=== PATIENT | female | born 1990 | race Hispanic/Latino ===

== ENCOUNTER 2016-11-26 21:51 | Emergency (ER) | payer BC, MEDICAID ==
[2016-11-26 21:57] VITALS: BP 123/73; PULSE 84; RESP 18; TEMP 99.2; O2SAT 99
--- NOTE | 2016-11-26 22:15 | ED PDOC ---
HPI: Back Time Seen by Provider: 11/26/16 21:56 Chief Complaint (Nursing): Back Pain Chief Complaint (Provider): Bilateral low back pain for 2 weeks, no trauma History Per: Patient History/Exam Limitations: no limitations Onset/Duration Of Symptoms: Days Current Symptoms Are (Timing): Still Present Full Body Front + Back: 1 - Pain Quality Of Discomfort: Dull Description Of Injury (Context): None Severity: Moderate Pain Scale Rating Of: 6 Previous Symptoms: None Associated Symptoms: None Exacerbating Factor(s): Movement, Sitting (For long periods ) Additional Complaint(s): No N/V/D. No bladder or bowel incontinence. No fever/chills. No numbness/ tingling. Pt states she has been taking motrin 600mg but it hs not been helping. No new activities. Past Medical History Reviewed: Historical Data, Nursing Documentation, Vital Signs Vital Signs: Last Vital Signs Temp 99.2 F 11/26/16 21:55 Pulse 84 11/26/16 21:55 Resp 18 11/26/16 21:55 BP 123/73 11/26/16 21:55 Pulse Ox 99 11/26/16 21:55 - Medical History PMH: No Chronic Diseases - Surgical History Surgical History: Cholecystectomy - Family History Family History: States: Unknown Family Hx - Living Arrangements Living Arrangements: With Family - Social History Current smoker - smoking cessation education provided: No Alcohol: None Drugs: Denies - Immunization History Hx Tetanus Toxoid Vaccination: No Hx Influenza Vaccination: No Hx Pneumococcal Vaccination: No - Home Medications Home Medications: Ambulatory Orders Medication Instructions Recorded Chlorzoxazone [Lorzone] 750 mg PO BID #14 tablet 11/26/16 Ciprofloxacin [Cipro] 500 mg PO BID #10 tab 11/26/16 Ibuprofen [Motrin Tab] 800 mg PO Q6H PRN #20 tab 11/26/16 - Allergies Allergies/Adverse Reactions: Allergies Allergy/AdvReac Type Severity Reaction Status Date / Time No Known Allergies Allergy Verified 03/05/16 23:37 Review of Systems ROS Statement: Except As Marked, All Systems Reviewed And Found Negative Respiratory: Negative for: Cough Gastrointestinal: Negative for: Nausea, Vomiting, Abdominal Pain Genitourinary Female: Negative for: Dysuria Musculoskeletal: Positive for: Back Pain Physical Exam - Reviewed Nursing Documentation Reviewed: Yes Vital Signs Reviewed: Yes - Physical Exam Appears: Positive for: Well, Non-toxic, No Acute Distress Head Exam: Positive for: ATRAUMATIC, NORMAL INSPECTION, NORMOCEPHALIC Skin: Positive for: Normal Color, Warm, DRY Eye Exam: Positive for: Normal appearance ENT: Positive for: Normal ENT Inspection Neck: Positive for: Normal, Painless ROM Cardiovascular/Chest: Positive for: Regular Rate, Rhythm Respiratory: Positive for: Normal Breath Sounds. Negative for: Accessory Muscle Use, Respiratory Distress Back: Positive for: Normal Inspection. Negative for: L CVA Tenderness, R CVA Tenderness, Vertebral Tenderness, Decreased ROM Extremity: Positive for: Normal ROM Neurologic/Psych: Positive for: Alert, Oriented - ECG O2 Sat by Pulse Oximetry: 99 Pulse Ox Interpretation: Normal Disposition - Clinical Impression Clinical Impression: Back pain, UTI (urinary tract infection) - Patient ED Disposition Is Patient to be Admitted: No Counseled Patient/Family Regarding: Diagnosis, Need For Followup, Rx Given - Disposition Referrals: [facility] [Outside] Disposition: Routine/Home Disposition Time: 23:07 Condition: GOOD Prescriptions: Ciprofloxacin [Cipro] 500 mg PO BID #10 tab Chlorzoxazone [Lorzone] 750 mg PO BID #14 tablet Ibuprofen [Motrin Tab] 800 mg PO Q6H PRN #20 tab PRN Reason: Pain Instructions: Urinary Tract Infection in Women (ED)
== END 2016-11-26 23:15 | disposition home or self-care (01) ==
LOC: H.ER 21:51
DX: N39.0 Urinary tract infection, site not specified (principal); M54.5 Low back pain
CPT/HCPCS: 87086; 96372; 99282; J1885

== ENCOUNTER 2017-07-29 03:01 | Emergency (ER) | payer BC, MEDICAID ==
--- NOTE | 2017-07-29 04:02 | ED PDOC ---
HPI:Nausea, Vomiting, Diarrhea Time Seen by Provider: 07/29/17 03:24 Chief Complaint (Nursing): Abdominal Pain Chief Complaint (Provider): Abdominal Pain History Per: Patient History/Exam Limitations: no limitations Onset/Duration Of Symptoms: Hrs (x3) Current Symptoms Are (Timing): Still Present Additional Complaint(s): 26 year old female who presents to the emergency department for epigastric pain associated with nausea, watery diarrhea, chills and 3 episodes of non-bloody vomiting ongoing since 12am today. Denied any fever. Patient stated her children had similar symptoms and requesting a work note for today. PMD: none provided Past Medical History Reviewed: Historical Data, Nursing Documentation, Vital Signs Vital Signs: Last Vital Signs Temp 98.7 F 07/29/17 03:19 Pulse 111 H 07/29/17 03:19 Resp 20 07/29/17 03:19 BP 123/79 07/29/17 03:19 Pulse Ox 99 07/29/17 03:19 - Surgical History Surgical History: Cholecystectomy - Family History Family History: States: Unknown Family Hx - Immunization History Hx Tetanus Toxoid Vaccination: No Hx Influenza Vaccination: No Hx Pneumococcal Vaccination: No - Home Medications Home Medications: Ambulatory Orders Medication Instructions Recorded Chlorzoxazone [Lorzone] 750 mg PO BID #14 tablet 11/26/16 Ciprofloxacin [Cipro] 500 mg PO BID #10 tab 11/26/16 Ibuprofen [Motrin Tab] 800 mg PO Q6H PRN #20 tab 11/26/16 - Allergies Allergies/Adverse Reactions: Allergies Allergy/AdvReac Type Severity Reaction Status Date / Time No Known Allergies Allergy Verified 07/29/17 03:28 Review of Systems ROS Statement: Except As Marked, All Systems Reviewed And Found Negative Constitutional: Positive for: Chills. Negative for: Fever Gastrointestinal: Positive for: Nausea, Vomiting (x3 nonbloody), Abdominal Pain (epigastric), Diarrhea (watery) Physical Exam - Reviewed Nursing Documentation Reviewed: Yes Vital Signs Reviewed: Yes - Physical Exam Appears: Positive for: Well, Non-toxic, No Acute Distress Head Exam: Positive for: ATRAUMATIC, NORMAL INSPECTION, NORMOCEPHALIC Skin: Positive for: Normal Color Eye Exam: Positive for: Normal appearance ENT: Positive for: Normal ENT Inspection Neck: Positive for: Normal, Painless ROM Cardiovascular/Chest: Positive for: Chest Non Tender, Tachycardia. Negative for : Regular Rate, Rhythm Respiratory: Positive for: Normal Breath Sounds. Negative for: Decreased Breath Sounds, Respiratory Distress Gastrointestinal/Abdominal: Positive for: Normal Exam, Soft, Tenderness ( epigastric, mild) Back: Positive for: Normal Inspection. Negative for: L CVA Tenderness, R CVA Tenderness Extremity: Positive for: Normal ROM Neurologic/Psych: Positive for: Alert, Oriented - Laboratory Results Result Diagrams: 07/29/17 06:16 07/29/17 06:16 - ECG O2 Sat by Pulse Oximetry: 99 (RA) Pulse Ox Interpretation: Normal Medical Decision Making Medical Decision Making: Initial Impression: Gastroenteritis Initial Plan: * Urine * Urine dipstick * NS 1,000ml IV per 1,000mls/hr * Pepcid 20mg IVP * Zofran inj 4mg IVP 0700 Pt continued having nausea and abd pain despite medications. CT ordered as well as phenergan and benadryl. will endorse to dr. mckeon pending ct and reassessment. Scribe Attestation: Documented by Tia Greene, acting as a scribe for Darien Herr MD. Provider Scribe Attestation: All medical record entries made by the Scribe were at my direction and personally dictated by me. I have reviewed the chart and agree that the record accurately reflects my personal performance of the history, physical exam, medical decision making, and the department course for this patient. I have also personally directed, reviewed, and agree with the discharge instructions and disposition. Disposition - Clinical Impression Clinical Impression: Abdominal pain - Disposition Referrals: Victorino Wray MD [Primary Care Provider] - Disposition Time: 07:00 Condition: STABLE Forms: [employer] (German) Patient Signed Over To: Jose Daniel Mckeon Handoff Comments: pending CT and reassessment
[2017-07-29] MEDS: Sodium Chloride 0.9% 1,000 ML IV STA ×2 (04:37→06:13)
[2017-07-29 06:17] VITALS: RESP 16
[2017-07-29 06:35] LABS: BASO % 0.2 % (0.0-2.0); EOS # 0.1 K/uL (0.0-0.7); EOS % 0.4 % (0.0-4.0); HEMATOCRIT 44.1 % (34.0-47.0); LYMPH # 1.2 K/uL (1.0-4.3); MEAN CORPUSCULAR HEMOGLOBIN 27.5 pg (27.0-31.0); MEAN CORPUSCULAR HGB CONC 32.4 g/dL (33.0-37.0); MEAN PLATELET VOLUME 9.3 fl (7.2-11.7); MONO # 0.6 K/uL (0.0-0.8); MONO % 4.2 % (0.0-10.0); NEUT % 87.2 % (50.0-75.0); PLATELET COUNT 251 K/uL (130-400); RED CELL DISTRIBUTION WIDTH 13.2 % (11.5-14.5); WHITE BLOOD COUNT 14.9 K/uL (4.8-10.8)
[2017-07-29 07:03] LABS: URINE COLOR YELLOW (YELLOW)
[2017-07-29 07:04] LABS: URINE BILIRUBIN NEGATIVE (NEGATIVE); URINE BLOOD TRACE (NEGATIVE); URINE GLUCOSE (UA) NEGATIVE (Normal); URINE KETONE NEGATIVE (NEGATIVE); URINE PROTEIN 30 mg/dL (NEGATIVE); URINE UROBILINOGEN 0.2 mg/dL (0.2-1.0)
[2017-07-29 07:05] LABS: RBC URINE 3 /hpf (0-3); URINE BACTERIA MOD (<OCC); URINE LEUKOCYTE ESTERASE LARGE Leu/uL (Negative); WBC URINE 80 /hpf (0-5)
[2017-07-29 07:07] LABS: BLOOD UREA NITROGEN 17 mg/dl (7-17); CALCIUM 9.6 mg/dL (8.4-10.2); CARBON DIOXIDE 22 mmol/L (22-30); CHLORIDE 102 mmol/L (98-107); GFR AFRICAN-AMERICAN > 60; GLUCOSE,RANDOM 99 mg/dL (65-105); SODIUM 144 mmol/l (132-148)
--- NOTE | 2017-07-29 07:07 | ED PDOC ---
- Laboratory Results Result Diagrams: 07/29/17 06:16 07/29/17 06:16 - ECG O2 Sat by Pulse Oximetry: 99 (RA) Pulse Ox Interpretation: Normal Medical Decision Making Medical Decision Makin:00 Patient signed over from Darien Herr MD to me pending CT scan results. 08:20 Patient reports feeling much better, she does not wish to have the CT scan at this time. Says her pain is gone. On re-exam her abd is soft and nontendor. Scribe Attestation: Documented by Sol Caputo, acting as a scribe for Jose Daniel Mckeon MD. Provider Scribe Attestation: All medical record entries made by the Scribe were at my direction and personally dictated by me. I have reviewed the chart and agree that the record accurately reflects my personal performance of the history, physical exam, medical decision making, and the department course for this patient. I have also personally directed, reviewed, and agree with the discharge instructions and disposition. Disposition - Clinical Impression Clinical Impression: Abdominal pain, Vomiting, Diarrhea - POA Present On Arrival: None - Disposition Referrals: Victorino Wray MD [Primary Care Provider] - Disposition: Routine/Home Disposition Time: 08:36 Condition: STABLE Additional Instructions: Please follow up with your doctor. Return to the ER for any worsening symptoms, fever, worsening pain, or for any other concerns. Prescriptions: Ondansetron ODT [Zofran ODT] 4 mg PO Q4H PRN #10 odt PRN Reason: Nausea/Vomiting Instructions: Gastroenteritis (ED) Forms: [employer] (Chilean), [facility] ED School/Work Excuse
[2017-07-29] MEDS ORDERED: Iohexol 240 (50 ml) ONE (07:31)
[2017-07-29] MEDS ORDERED: DiphenhydrAMINE 50 mg/ml Inj ONE (07:31)
[2017-07-29] MEDS: DiphenhydrAMINE 50 mg/ml Inj IVP STA (07:36)
[2017-07-29] MEDS: Iohexol 240 (50 ml) PO ONE (07:36)
[2017-07-29] MEDS: Promethazine 25 MG in Sodium Chloride 0.9% 50 ML IVPB ONE (07:39)
[2017-07-29 08:36] LABS: EOSINOPHIL 2 % (0-7); LARGE PLATELETS PRESENT; NEUTROPHIL 84 % (42-75); TOTAL CELLS COUNTED 100
[2017-07-29 08:37] VITALS: O2SAT 99
[2017-07-29 09:19] VITALS: BP 120/71; PULSE 82; TEMP 98
== END 2017-07-29 09:20 | disposition home or self-care (01) ==
LOC: H.ER 03:01
DX: K52.9 Noninfective gastroenteritis and colitis, unspecified (principal)
CPT/HCPCS: 80048; 81003; 81025; 85025; 96361; 96365; 96375; 99284; J1200; J2405; J2550; J2765; J7040; Q9966

== ENCOUNTER 2018-08-20 11:21 | Emergency (ER) | payer BC, MEDICAID, OTHER ==
--- NOTE | 2018-08-20 11:47 | ED PDOC ---
HPI: CCC, URI, Sore Throat Time Seen by Provider: 08/20/18 11:28 Chief Complaint (Provider): Cough History Per: Patient History/Exam Limitations: no limitations Onset/Duration Of Symptoms: Days (2) Additional Complaint(s): Pt. with cough, nasal congestion, runny nose, sore throat but able to swallow, body aches. No headaches or dizziness. No weakness, dyspnea, chest pain. Had a bloody nose on the right and stopped on its own. No fever at home. No nausea, vomit. Diarrhea x 2 nonbloody. Past Medical History Reviewed: Nursing Documentation, Vital Signs Vital Signs: Last Vital Signs Temp 102.9 F H 08/20/18 11:31 Pulse 130 H 08/20/18 11:31 Resp 17 08/20/18 11:31 BP 120/79 08/20/18 11:31 Pulse Ox 99 08/20/18 11:31 - Medical History PMH: No Chronic Diseases - Surgical History Surgical History: Cholecystectomy - Family History Family History: States: Unknown Family Hx - Immunization History Hx Tetanus Toxoid Vaccination: No Hx Influenza Vaccination: No Hx Pneumococcal Vaccination: No - Home Medications Home Medications: Ambulatory Orders Medication Instructions Recorded Chlorzoxazone [Lorzone] 750 mg PO BID #14 tablet 11/26/16 Ciprofloxacin [Cipro] 500 mg PO BID #10 tab 11/26/16 Ibuprofen [Motrin Tab] 800 mg PO Q6H PRN #20 tab 11/26/16 Ondansetron ODT [Zofran ODT] 4 mg PO Q4H PRN #10 odt 07/29/17 Benzonatate [Tessalon Perles] 100 mg PO BID PRN 5 Days sgl 08/20/18 Ibuprofen [Motrin] 600 mg PO TID 7 Days tab 08/20/18 Oseltamivir Phosphate [Tamiflu] 75 mg PO BID 5 Days capsule 08/20/18 - Allergies Allergies/Adverse Reactions: Allergies Allergy/AdvReac Type Severity Reaction Status Date / Time No Known Allergies Allergy Verified 07/29/17 03:28 Review of Systems ROS Statement: Except As Marked, All Systems Reviewed And Found Negative ENT: Positive for: Nose Pain, Nose Congestion, Throat Pain Respiratory: Positive for: Cough Physical Exam - Reviewed Nursing Documentation Reviewed: Yes Vital Signs Reviewed: Yes - Physical Exam Appears: Positive for: Non-toxic, No Acute Distress Head Exam: Positive for: ATRAUMATIC, NORMAL INSPECTION, NORMOCEPHALIC Skin: Positive for: Normal Color, Warm, DRY Eye Exam: Positive for: EOMI, Normal appearance, PERRL ENT: Positive for: Nasal Congestion, Other (R nostril with dried blood, but no active bleeding). Negative for: Pharyngeal Erythema, Tonsillar Exudate Neck: Positive for: Normal, Painless ROM Cardiovascular/Chest: Positive for: Regular Rate, Rhythm Respiratory: Positive for: CNT, Normal Breath Sounds Gastrointestinal/Abdominal: Positive for: Normal Exam, Soft. Negative for: Ten derness Back: Positive for: Normal Inspection. Negative for: L CVA Tenderness, R CVA Tenderness Extremity: Positive for: Normal ROM. Negative for: Tenderness Neurologic/Psych: Positive for: Alert, Oriented - Laboratory Results Lab Results: pos flu - ECG O2 Sat by Pulse Oximetry: 99 Pulse Ox Interpretation: Normal - Progress ED Course And Treament: 1248: Stable. AAOx3. Pain free. Tolerated PO. Disposition - Clinical Impression Clinical Impression: Influenza - Patient ED Disposition Is Patient to be Admitted: No Counseled Patient/Family Regarding: Studies Performed, Diagnosis, Need For Followup, Rx Given - Disposition Referrals: [facility] [Outside] - 08/21/18 Disposition: Routine/Home Disposition Time: 12:50 Condition: STABLE Additional Instructions: Return if not better in 3 days. Prescriptions: Benzonatate [Tessalon Perles] 100 mg PO BID PRN 5 Days sgl PRN Reason: Cough Ibuprofen [Motrin] 600 mg PO TID 7 Days tab Oseltamivir Phosphate [Tamiflu] 75 mg PO BID 5 Days capsule Instructions: Flu Forms: [employer] [facility] (Qatari), [facility] ED School/Work Excuse
[2018-08-20 12:58] VITALS: TEMP 103
[2018-08-20 13:07] VITALS: BP 107/69; PULSE 96; RESP 22; O2SAT 96
== END 2018-08-20 13:35 | disposition home or self-care (01) ==
LOC: H.ER 11:21
DX: J11.1 Influenza due to unidentified influenza virus with other respiratory manifestations (principal)